=== PATIENT | female | born 1940 | race Caucasian/White ===

== ENCOUNTER → 2023-09-23 15:59 | Outpatient (REF) | payer OTHER, SELFPAY | LOC: RAD 15:59 | PROVIDERS: ATTENDING PHYSICIAN Internal Medicine | DX: J06.9 Acute upper respiratory infection, unspecified (principal) | CPT/HCPCS: 71046 ==

== ENCOUNTER → 2023-11-11 16:34 | Outpatient (REF) | payer OTHER, SELFPAY ==
[2023-11-11 17:47] LABS: Magnesium 1.3 mg/dl (1.6-2.3)
== END ==
LOC: REG 16:34
PROVIDERS: ATTENDING PHYSICIAN Family Medicine
DX: E83.42 Hypomagnesemia (principal)
CPT/HCPCS: 36415; 83735

== ENCOUNTER → 2023-12-15 14:59 | Outpatient (REF) | payer OTHER, SELFPAY | LOC: PAVMRI 14:59 | PROVIDERS: ATTENDING PHYSICIAN Orthopaedic Surgery; FAMILY PHYSICIAN Family Medicine | DX: M54.6 Pain in thoracic spine (principal); M54.50 Low back pain, unspecified | CPT/HCPCS: 72146; 72148 ==

== ENCOUNTER → 2023-12-29 11:37 | Outpatient (REF) | payer OTHER, SELFPAY ==
[2023-12-29 13:31] LABS: Magnesium 1.4 mg/dl (1.6-2.3)
== END ==
LOC: REG 11:37
PROVIDERS: ATTENDING PHYSICIAN Family Medicine; REFERRING PHYSICIAN Internal Medicine
DX: E83.42 Hypomagnesemia (principal)
CPT/HCPCS: 36415; 83735

== ENCOUNTER → 2024-01-03 13:31 | Outpatient (REF) | payer OTHER, SELFPAY ==
[2024-01-03 14:00] VITALS: BP 123/61; BP_SYST 74
[2024-01-03 14:12] LABS: INR 1.02; PT 13.3 Sec (11.4-14.6)
[2024-01-03 15:26] VITALS: BP 134/59; BP_SYST 69
[2024-01-03 15:44] VITALS: BP 134/59
== END ==
LOC: RADI 13:31
PROVIDERS: ATTENDING PHYSICIAN Radiology Vascular & Interventional Radiology; FAMILY PHYSICIAN Family Medicine
DX: S32.010A Wedge compression fracture of first lumbar vertebra, initial encounter for closed fracture (principal); M54.50 Low back pain, unspecified; D68.8 Other specified coagulation defects
CPT/HCPCS: 36415; 62323; 85610

== ENCOUNTER → 2024-01-24 14:26 | Outpatient (REF) | payer OTHER, SELFPAY ==
[2024-01-24 14:37] VITALS: BP 121/70; BP_SYST 92
== END ==
LOC: RADI 14:26
PROVIDERS: ATTENDING PHYSICIAN Radiology Vascular & Interventional Radiology; FAMILY PHYSICIAN Family Medicine
DX: M54.16 Radiculopathy, lumbar region (principal)
CPT/HCPCS: 62323

== ENCOUNTER → 2024-02-11 08:33 | Outpatient (REF) | payer OTHER, SELFPAY | LOC: RAD 08:33 | PROVIDERS: ATTENDING PHYSICIAN Family Medicine | DX: R13.10 Dysphagia, unspecified (principal) | CPT/HCPCS: 74230; 92611 ==

== ENCOUNTER → 2024-05-08 06:35 | Day surgery (SDC) | payer OTHER, SELFPAY | LOC: GI 06:35 | PROVIDERS: ATTENDING PHYSICIAN Student in an Organized Health Care Education/Training Program; FAMILY PHYSICIAN Family Medicine | DX: R13.12 Dysphagia, oropharyngeal phase (principal); R09.A2 Foreign body sensation, throat; Q39.9 Congenital malformation of esophagus, unspecified; K22.89 Other specified disease of esophagus; K44.9 Diaphragmatic hernia without obstruction or gangrene | CPT/HCPCS: 43239; 88305 ==

== ENCOUNTER 2024-06-05 12:58 | Emergency (ER) | payer OTHER, SELFPAY ==
[2024-06-05 13:04] VITALS: BP 131/95
[2024-06-05 13:24] LABS: % Basophils 0.4 % (0-2); % Eosinophils 1.4 % (0-6); % Immature Granulocytes 0.2 % (0-0.5); % Lymphocytes 26.1 % (20.5-51.1); % Monocytes 10.5 % (1.7-9.3); % Neutrophils 61.4 % (42.2-75.2); Absolute Eosinophils 0.1 10^3/uL (0-0.7); Absolute Lymphocytes 2.1 10^3/uL (1.2-3.4); Absolute Monocytes 0.8 10^3/uL (0.1-0.6); Absolute Neutrophils 4.9 10^3/uL (1.4-6.5); Hematocrit 38.1 % (37.0-47.0); Hemoglobin 12.7 g/dL (12.0-16.0); Mean Corp Hgb Conc. 33.3 g/dL (33.0-37.0); Mean Corpuscular Hgb 31.1 pg (27.0-31.0); Mean Corpuscular Volume 93.2 fL (81.0-99.0); Nucleated Red Blood Cells % 0 %; Platelet Count 214 10^3/uL (130-400); Red Blood Cell Count 4.09 10^6/uL (4.20-5.40); Red Cell Dist. Width 12.5 % (11.5-14.5)
[2024-06-05 13:40] LABS: ALT (SGPT) 16 U/L (0-35); AST (SGOT) 26 U/L (14-36); Albumin 3.8 g/dl (3.5-5.0); Alkaline Phosphatase 52 U/L (38-126); Blood Urea Nitrogen 17 mg/dl (7-17); Calcium 9.4 mg/dl (8.4-10.2); Carbon Dioxide 29 mmol/L (22-30); Chloride 104 mmol/L (98-107); Glucose 101 mg/dl (70-99); Potassium 3.9 mmol/L (3.5-5.1); Sodium 142 mmol/L (135-145); Total Bilirubin 0.5 mg/dl (0.2-1.3); Total Protein 6.3 g/dl (6.3-8.2); eGFR 55.21
--- NOTE | 2024-06-05 15:49 | ED.GENMED ---
History of Present Illness
General
Chief Complaint: Weakness
Time Seen by Provider: 06/05/24 15:49
History of Present Illness
History of Present Illness:
TIME OF INITIAL ENCOUNTER: 3:50 PM
HPI: The patient tested positive for COVID about 1 month ago. Since that time she has been feeling weak. She describes the weakness as somewhat as a depressed feeling and feels she cannot get anything done. She has no energy to do anything. This
is associated with some degree of shortness of breath. She has no chest discomfort. She denies any other symptoms other than sometimes her leg swell. There is no swelling currently. She smoked only as a teenager. She intermittently feels that
she has a dry mouth.
EXAM:
GENERAL: Well appearing in no distress, but appears somewhat weak
HEENT: Moist oral mucosa
CARDIOVASCULAR: No murmurs, normal heart rate, regular rhythm, No chest wall tenderness
PULMONARY: No respiratory distress, breath sounds are somewhat diminished equally
ABDOMEN: Soft with no peritoneal signs, no tenderness
NEUROLOGIC: Excellent strength all extremities, no coordination deficits
PSYCHIATRIC: Appropriate mental status, normal insight and judgement
EXTREMITIES: Minimal tenderness at both ankles but no lower extremity edema nor calf tenderness, moves all extremities equally
SKIN: No rash, no lesions
NUMBER AND COMPLEXITY OF PROBLEMS ADDRESSED AT THE ENCOUNTER
� Chronic conditions affecting care: A-fib, high blood pressure, hyperlipidemia
� Acute Exacerbation and/or Progression of Chronic Illness: This is an acute problem
� Differential Diagnosis includes: Long COVID, viral syndrome, hypothyroidism, anemia, CHF
AMOUNT AND/OR COMPLEXITY OF DATA TO BE REVIEWED AND ANALYZED
� I performed an independent evaluation of and my interpretation is:
EKG: Sinus 64, left axis deviation, inferior Q waves new from 2017
CT:
X-rays: I personally reviewed x-ray and agree with radiologist interpretation that there is no acute abnormality but there is evidence of a hiatal hernia
Laboratory Studies: White count and hemoglobin are normal, chemistries unremarkable
Other:
� Review of other/old records: I reviewed records, the patient had endoscopy about 1 month ago
� Clinical information was obtained by an independent historian: None needed
� Prescriptions/Medications Considered but not given:
� Further testing considered but not performed:
RISK OF COMPLICATIONS AND/OR MORBIDITY OR MORTALITY OF PATIENT MANAGEMENT
� Social determinants of health affecting care: Lives at home, took an Uber here
� Discussion with other providers:
� Escalation of care including admission/observation vs risk of discharge considered: Basic blood work so far are unremarkable. Adding on troponin, TSH, and BNP. She states that she does not feel dehydrated.
ANY OTHER UPDATES:
5:40 PM I reassessed patient. Basic labs including troponin, BNP, TSH are unremarkable. Chest x-ray is relatively unremarkable as well. The patient has no further complaints but weakness persists. No clear indication for admission to the
hospital.
Past History
Past History
ED Past Medical History: HTN, Hypercholesterolemia, Other (Fibromyalgia) and Other (RLS)
ED Past Surgical History: Gynecological
Social History
Tobacco: Non-smoker
Alcohol: None
Drug: None
Living: alone
Employment: Employed
Family History
Family History: Other (Noncontributory)
Phy Exam
Physical Exam
Physical Exam:
See HPI
Course
Orders/Labs/Results
Orders:
Orders
06/05/24 13:08
Electrocardiogram (*1) Urgent
Reason for Study: Fatigue / Weakness
06/05/24 13:09
EKG- Treatment ONCE
06/05/24 13:11
CMP [Comprehensive Metabolic Panel] Urgent
Complete Blood Count/With Diff Urgent
TSH Reflex To Free T4 Urgent
Comment: ADD ON
06/05/24 15:50
Add On- LAB Urgent
Tests Added?: bnp
06/05/24 15:51
CR Chest - 2 Views Urgent
Comment:
Reason For Exam: sob
06/05/24 15:56
Add On- LAB Urgent
Tests Added?: tsh reflex fT4
06/05/24 16:06
NT-proBNP Urgent
Comment: ADD ON
Troponin I Urgent
Abnormal Lab Results
06/05/24
13:11
RBC 4.09 L 10^6/uL
(4.20-5.40)
MCH 31.1 H pg
(27.0-31.0)
MPV 11.0 H fL
(7.4-10.4)
Absolute Monos (auto) 0.8 H 10^3/uL
(0.1-0.6)
Monocytes % 10.5 H %
(1.7-9.3)
Glucose 101 H mg/dl
(70-99)
06/05/24 13:11
06/05/24 13:11
Vital Signs
Initial and Last Documented VS:
Initial Vital Signs
Temp Pulse Resp BP Pulse Ox
98.1 F 79 20 131/95 99
06/05/24 13:04 06/05/24 13:04 06/05/24 13:04 06/05/24 13:04 06/05/24 13:04
Last Documented Vital Signs
Temp Pulse Resp BP Pulse Ox
98.1 F 80 16 143/60 99
06/05/24 13:04 06/05/24 16:05 06/05/24 16:05 06/05/24 16:05 06/05/24 16:05
*Critical Care Note
Total Time (30-74mins, 75-104mins- exclusive of procedures): Not Applicable
ED Attending Note
-
Portions of this chart may have been created with voice recognition software.� Occasional wrong word or��sound alike� substitutions may have occurred due to the inherent limitations of voice recognition software.
Discharge Plan
Departure
Patient Disposition: Home (Routine Discharge)
Date of Disposition: 06/05/24
Time of Disposition: 17:41
Patient with high blood pressure during this ER visit?: Yes
Discharge Problem:
Weakness
Instructions: Generalized Weakness (DC), BLOOD PRESSURE
Prescriptions:
No Action
Hctz/Reserpine/Hydral Tab
25 mg PO DAILY
Xarelto 20 mg Tablet
20 mg PO QPM
tramadol 50 mg Tablet
50 mg PO PRN PRN (Reason: back pain)
montelukast 10 mg Tablet
10 mg PO QPM
metoprolol succinate [Toprol XL] 25 mg Tablet Extended Release 24 Hr
25 mg PO DAILY
losartan 100 mg Tablet
100 mg PO DAILY
acetaminophen [Tylenol Extra Strength] 500 mg Capsule
500 mg PO Q6H PRN (Reason: pain)
esomeprazole magnesium 20 mg Tablet,Delayed Release (Dr/Ec)
20 mg PO DAILY
potassium chloride 20 mEq Tablet Extended Release
20 meq PO DAILY
Referrals:
Maria Eugenia Sampson, [Family Provider] -
Activity Restrictions/Additional Instructions:
White blood cell count, hemoglobin level, electrolytes, kidney function, liver numbers, test for heart failure, test for heart attack, and thyroid testing are all normal. Chest x-ray shows nothing other than a hiatal hernia. EKG was unremarkable
as well. Follow-up your primary care doctor. Return here if worse or other concerns.
Interventions
Interventions:
*Risk Screen - Suicide Last Done: 06/05/24 13:08
*General Assessment Last Done: 06/05/24 13:08
*Neglect/Abuse Screening Last Done: 06/05/24 13:08
*ED COVID-19 Vaccine History Last Done: 06/05/24 13:08
ED- Cardiac Assessment Last Done: 06/05/24 16:10
ED- Neurological Assessment Last Done: 06/05/24 16:10
ED- Pulmonary Assessment Last Done: 06/05/24 16:10
Discharge Date and Time
Print Language: [id number]
[2024-06-05 16:04] VITALS: BMI 27.0
[2024-06-05 16:05] VITALS: BP 143/60
[2024-06-05 16:43] LABS: NT-proBNP 475 pg/ml; Troponin I 0.014 ng/ml
[2024-06-05 17:18] LABS: TSH Reflex To Free T4 2.98 uIU/ml (0.47-4.68)
== END 2024-06-05 17:54 | disposition home or self-care (01) ==
LOC: EMR 12:58
PROVIDERS: Emergency Medicine; EMERGENCY PHYSICIAN Emergency Medicine; FAMILY PHYSICIAN Family Medicine
DX: R53.1 Weakness (principal); K44.9 Diaphragmatic hernia without obstruction or gangrene; I10 Essential (primary) hypertension; E78.00 Pure hypercholesterolemia, unspecified; M79.7 Fibromyalgia; Z86.16 Personal history of COVID-19
CPT/HCPCS: 99285; 71046; 80053; 83880; 84443; 84484; 85025; 93005

== ENCOUNTER → 2024-09-19 12:54 | Outpatient (REF) | payer MEDICARE, SELFPAY | LOC: RCS 12:54 | PROVIDERS: ATTENDING PHYSICIAN Internal Medicine; FAMILY PHYSICIAN Family Medicine | DX: R42 Dizziness and giddiness (principal) | CPT/HCPCS: 93225; 93226 ==

== ENCOUNTER → 2024-09-20 15:32 | Outpatient (REF) | payer MEDICARE, SELFPAY | LOC: HWRAD 15:32 | PROVIDERS: ATTENDING PHYSICIAN Family Medicine | DX: Z87.81 Personal history of (healed) traumatic fracture (principal) | CPT/HCPCS: 72110 ==

== ENCOUNTER → 2024-10-17 10:07 | Outpatient (REF) | payer MEDICARE, SELFPAY ==
[2024-10-17 14:35] LABS: % Basophils 0.6 % (0-2); % Immature Granulocytes 0.1 % (0-0.5); % Lymphocytes 36.8 % (20.5-51.1); % Monocytes 8.7 % (1.7-9.3); % Neutrophils 52.8 % (42.2-75.2); Absolute Eosinophils 0.1 10^3/uL (0-0.7); Absolute Lymphocytes 2.7 10^3/uL (1.2-3.4); Absolute Monocytes 0.6 10^3/uL (0.1-0.6); Absolute Neutrophils 3.8 10^3/uL (1.4-6.5); Hematocrit 44.4 % (37.0-47.0); Hemoglobin 14.5 g/dL (12.0-16.0); Mean Corp Hgb Conc. 32.7 g/dL (33.0-37.0); Mean Corpuscular Hgb 30.1 pg (27.0-31.0); Mean Corpuscular Volume 92.1 fL (81.0-99.0); Mean Platelet Volume 10.9 fL (7.4-10.4); Nucleated Red Blood Cells % 0 %; Platelet Count 200 10^3/uL (130-400); Red Blood Cell Count 4.82 10^6/uL (4.20-5.40); Red Cell Dist. Width 13.1 % (11.5-14.5); White Blood Cell Count 7.2 10^3/uL (4.8-10.8)
[2024-10-17 14:54] LABS: ALT (SGPT) 25 U/L (0-35); AST (SGOT) 31 U/L (14-36); Albumin 4.6 g/dl (3.5-5.0); Alkaline Phosphatase 72 U/L (38-126); Blood Urea Nitrogen 22 mg/dl (7-17); Calcium 9.9 mg/dl (8.4-10.2); Carbon Dioxide 36 mmol/L (22-30); Chloride 100 mmol/L (98-107); Glucose 152 mg/dl (70-99); Potassium 3.5 mmol/L (3.5-5.1); Sodium 144 mmol/L (135-145); Total Bilirubin 0.8 mg/dl (0.2-1.3); Total Protein 7.3 g/dl (6.3-8.2); eGFR > 60.00
[2024-10-17 15:24] LABS: TSH 3.36 uIU/ml (0.47-4.68)
== END ==
LOC: PAVMRI 10:07
PROVIDERS: ATTENDING PHYSICIAN Family Medicine
DX: H81.13 Benign paroxysmal vertigo, bilateral (principal); R42 Dizziness and giddiness; R44.3 Hallucinations, unspecified; R51.9 Headache, unspecified
CPT/HCPCS: 36415; 70553; 80053; 84443; 85025; A9575

== ENCOUNTER → 2025-02-28 14:17 | Outpatient (REF) | payer MEDICARE, SELFPAY ==
[2025-02-28 14:40] LABS: Hematocrit 39.5 % (37.0-47.0); Hemoglobin 12.9 g/dL (12.0-16.0); Mean Corp Hgb Conc. 32.7 g/dL (33.0-37.0); Mean Corpuscular Volume 91.9 fL (81.0-99.0); Nucleated Red Blood Cells % 0 %; Platelet Count 221 10^3/uL (130-400); Red Cell Dist. Width 14.0 % (11.5-14.5)
== END ==
LOC: REG 14:17
PROVIDERS: ATTENDING PHYSICIAN Family Medicine
DX: K62.5 Hemorrhage of anus and rectum (principal)
CPT/HCPCS: 36415; 85025

== ENCOUNTER → 2025-04-02 10:06 | Outpatient (REF) | payer MEDICARE, SELFPAY ==
[2025-04-02 11:20] LABS: Hematocrit 37.6 % (37.0-47.0); Hemoglobin 12.4 g/dL (12.0-16.0); Mean Corp Hgb Conc. 33.0 g/dL (33.0-37.0); Mean Corpuscular Volume 91.9 fL (81.0-99.0); Nucleated Red Blood Cells % 0 %; Platelet Count 196 10^3/uL (130-400); Red Cell Dist. Width 13.4 % (11.5-14.5)
== END ==
LOC: RCS 10:06
PROVIDERS: ATTENDING PHYSICIAN Physical Medicine & Rehabilitation; FAMILY PHYSICIAN Family Medicine
DX: Z01.818 Encounter for other preprocedural examination (principal); K62.5 Hemorrhage of anus and rectum; R71.0 Precipitous drop in hematocrit
CPT/HCPCS: 36415; 85025; 93005